=== PATIENT | male | born 1965 | race Caucasian/White ===

== ENCOUNTER 2016-04-23 14:13 | Emergency (ER) | payer SELFPAY ==
[~2016-04-23] VITALS: Ht 167.6 cm; Wt 107.0 kg
[2016-04-23 15:09] LABS: INFLUENZA A VIRAL ANTIGEN NEGATIVE; INFLUENZA B VIRAL ANTIGEN NEGATIVE
[2016-04-23] MEDS ORDERED: MUCINEX D ER T1 EACH PO (15:27)
[2016-04-23] MEDS ORDERED: FLONASE16 G1 BOTH NARES (15:27)
[2016-04-23] MEDS ORDERED: PREDNISONE20 MG PO (15:27)
[2016-04-23] MEDS ORDERED: TESSALON PERLE100 MG PO (15:27)
[2016-04-23 15:53] VITALS: BP 154/98
== END 2016-04-23 16:13 | disposition home or self-care (01) ==
LOC: EME 14:13
PROVIDERS: Physician Assistant
DX: J06.9 Acute upper respiratory infection, unspecified (principal); I10 Essential (primary) hypertension
CPT/HCPCS: 87502; 87651 90; 99281; 99284; J7512